=== PATIENT | female | born 2000 | race African-American/Black ===

== ENCOUNTER 2021-05-18 20:16 | Emergency (ER) | payer OTHER ==
[~2021-05-18] VITALS: Ht 157.5 cm; Wt 75.0 kg
[2021-05-18 20:38] VITALS: BP 124/67; TEMP 98.9
[2021-05-18] MEDS ORDERED: PREDNISONE20 MG PO (21:04)
[2021-05-18] MEDS ORDERED: LAC-HYDRIN121 TP (21:04)
[2021-05-18] MEDS ORDERED: TOPICORT0.5CR15 TP (21:04)
[2021-05-18 21:29] VITALS: PULSE 61
== END 2021-05-18 21:30 | disposition home or self-care (01) ==
LOC: COL.ER 20:16
DX: L30.9 Dermatitis, unspecified (principal)
CPT/HCPCS: J7512

== ENCOUNTER 2021-10-07 01:15 | Emergency (ER) | payer OTHER ==
[~2021-10-07] VITALS: Ht 157.5 cm; Wt 75.0 kg
[~2021-10-07 01:15] MED LIST: LAC-HYDRIN121 TP; PREDNISONE20 MG PO; TOPICORT0.5CR15 TP
[2021-10-07 02:06] LABS: COLLECTION METHOD CLEAN CATCH
[2021-10-07 02:18] LABS: MUCOUS Present (NOT PRESENT); PH 7 (5-8); SQUAMOUS EPITHELIAL 0-2 /hpf (0-10); URINE APPEARANCE Clear (CLEAR/HAZY); URINE BACTERIA None Seen /hpf (NONE SEEN); URINE BILIRUBIN Negative (NEGATIVE); URINE BLOOD Negative (NEGATIVE); URINE COLOR Yellow (YELLOW); URINE GLUCOSE Negative (NEGATIVE); URINE KETONE Negative (NEGATIVE); URINE LEUKOCYTE ESTERASE Negative (NEGATIVE); URINE NITRATE Negative (NEGATIVE); URINE PROTEIN(semi-quant) Negative (NEGATIVE); URINE RBC None Seen /hpf (0-2)
[2021-10-07 02:58] VITALS: BP 127/74; PULSE 75; TEMP 98.4
== END 2021-10-07 02:58 | disposition home or self-care (01) ==
LOC: COL.ER 01:15
PROVIDERS: Physician Assistant
DX: N76.0 Acute vaginitis (principal); Z20.2 Contact with and (suspected) exposure to infections with a predominantly sexual mode of transmission; Z32.02 Encounter for pregnancy test, result negative
CPT/HCPCS: J0696

== ENCOUNTER 2021-10-18 04:18 | Emergency (ER) | payer OTHER ==
[~2021-10-18] VITALS: Ht 157.5 cm; Wt 75.0 kg
[2021-10-18 04:25] VITALS: TEMP 97.8
[2021-10-18] MEDS ORDERED: MOTRIN 800800 MG/TAB PO (04:40)
[2021-10-18 05:08] VITALS: BP 128/82; PULSE 82
== END 2021-10-18 05:05 | disposition home or self-care (01) ==
LOC: COL.ER 04:18
DX: R07.81 Pleurodynia (principal)